=== PATIENT | female | born 1970 | race Caucasian/White ===

== ENCOUNTER → 2024-04-26 08:51 | Outpatient (REF) | payer BC, SELFPAY | LOC: RAD 08:51 | PROVIDERS: ATTENDING PHYSICIAN Nurse Practitioner Family; FAMILY PHYSICIAN Nurse Practitioner Family | DX: R14.0 Abdominal distension (gaseous) (principal); R10.2 Pelvic and perineal pain | CPT/HCPCS: 76830; 76856 ==